=== PATIENT | male | born 1965 | race Two or more races ===

== ENCOUNTER 2025-09-13 09:39 | Emergency (ER) | payer MEDICAID, SELFPAY ==
[2025-09-13 09:52] VITALS: BP 175/81; PULSE 91; RESP 18; TEMP 37; O2SAT 98; BMI 29.9
--- NOTE | 2025-09-13 09:59 | EDNOTE_ITS ---
<Statement entered by Parisa Nelson MD - 09/13/25 16:13> As co-signing physician, I was present and available for consult prn. I concur with the plan and care as documented by the midlevel provider. ED General RME/HPI General Chief complaint: General Adult/Misc Complain Stated complaint: NAIL IN R) FOOT HEEL Time Seen by Provider: 09/13/25 09:45 Arrival date/time: 09/13/25 09:39 59-year-old male presents to the Emergency Department today for complaints of injury to his right foot patient reports he accidentally stepped on a nail last night patient currently has a nail embedded in his foot Limitations: no limitations Related Data Previous Rx's ?Medication ?Instructions ?Recorded bacitracin 500 unit/gram topical 1 applic topical TID 7 days #28.4 09/13/25 ointment grams ciprofloxacin HCl 500 mg tablet 500 mg PO BID 7 days # 14 tabs 09/13/25 ibuprofen 800 mg tablet 800 mg PO TID PRN pain #30 t abs 09/13/25 Allergies Allergy/AdvReac Type Severity Reaction Status Date / Time No Known Allergies Allergy Verified 09/13/25 09:42 Review of Systems Review of Systems Systems Reviewed: All systems reviewed, normal except as documented Constitutional Constitutional: Reports system reviewed and no additional complaints, except as documented, Denies fever(s) and Denies headache(s) Eyes Eyes: Reports system reviewed and no additional complaints, except as documented and Denies blurry vision ENT Ears, Nose, Mouth, and Throat: Reports system reviewed and no additional complaints, except as documented, Denies headache(s), Denies nasal congestion and Denies nasal discharge Cardiovascular Cardiovascular: Reports system reviewed and no additional complaints, except as documented, Denies chest pain and Denies dyspnea Respiratory Respiratory: Reports system reviewed and no additional complaints, except as documented, Denies chest congestion, Denies cough and Denies dyspnea Gastrointestinal Gastrointestinal: Reports system reviewed and no additional complaints, except as documented and Denies abdominal pain Musculoskeletal Musculoskeletal: Reports other (Puncture wound right foot) Integumentary/Breasts Skin/Breast: Reports system reviewed and no additional complaints, except as documented, Denies rash and Reports wounds (Puncture wound right foot) Neurologic Neurologic: Reports system reviewed and no additional complaints, except as documented, Reports as per HPI and Denies headache(s) Past Medical History Past Medical History CARDIAC: Negative Cardiac Disorders or Congestive Heart Failure RESPIRATORY: Negative Chronic Obstructive Pulmonary Disease (COPD) or Asthma GENITOURINARY: Negative Renal Disease ENDOCRINE: Negative Diabetes Mellitus Type 1 or Diabetes Mellitus Type 2 HEMATOLOGIC: Negative Sickle Cell Disease Social History SMOKING STATUS: Current every day smoker ED Exam General Limitations: Present no limitations General appearance: Present alert and in no apparent distress Head Head exam: Present atraumatic Eye Eye exam: Present normal appearance, PERRL and EOMI ENT ENT exam: Present normal exam, normal oropharynx and mucous membranes moist Neck Neck exam: Present normal inspection, full ROM and trachea midline Chest Chest inspection: Present normal inspection and symmetric chest wall rise Respiratory Respiratory exam: Present normal lung sounds bilaterally Cardiovascular Cardiovascular exam: Present regular rate, normal rhythm and normal heart sounds Abdominal Exam Abdominal exam: Present soft and normal bowel sounds Extremities Exam Extremities exam: Present normal inspection and full ROM Back Exam Back exam: Present normal inspection and full ROM Neurological Exam Neurological exam: Present alert, oriented X3, CN II-XII intact, normal gait and reflexes normal; Absent motor sensory deficit Psychiatric Psychiatric exam: Present normal affect and normal mood Skin Skin exam: Present warm, dry and other (Puncture wound right foot) Course Quality Measures none Orders Category Date Time Status TDap [Obtain Tdap Consent] X1 Care 09/13/25 09:59 Completed Wound Care NOW Care 09/13/25 09:59 Completed TET,DIP/PERT AC (Adult)-Tdap [Boostrix Adult (Tdap) Med 09/13/25 09:59 Discontinued Vacc] 0.5 ml IMI .ONCE ONE Vital Signs Vital signs: Vital Signs Temperature 98.6 F 09/13/25 09:52 Pulse Rate 91 09/13/25 09:52 Respiratory Rate 18 09/13/25 09:52 Blood Pressure 175/81 H 09/13/25 09:52 Pulse Oximetry (%) 98 09/13/25 09:52 Oxygen Delivery Method Room Air 09/13/25 09:52 O2 saturation 98% on room air within normal limits PROCEDURES: Foreign Body Removal Time Out Performed: yes Site: right Description of foreign body: other (nail) Sedation/Analgesia: none Technique: manual removal and removal with forceps Confirmed by:: direct visualization Complications: none Post-procedure exam: awake, alert Neurovascular: normal distal pulse Discharge Plan Plan Patient Disposition: HOME (Self Care) Discharge Disposition comment: Stable Prescriptions/Referrals Prescriptions/Med Rec: New ibuprofen 800 mg tablet 800 mg PO TID PRN (Reason: pain) Qty: 30 0RF bacitracin 500 unit/gram ointment 1 applic topical TID 7 Days Qty: 28.4 0RF ciprofloxacin HCl 500 mg tablet 500 mg PO BID 7 Days Qty: 14 0RF Problem List Clinical Impression: Foreign body in foot, right Patient/Caregiver Discharge Instructions Education Materials: ED Foreign Body Soft Tissue Removed Additional Instructions: Please follow up with your primary care doctor in the next 24-48hrs for any worsening symptoms return here immediately Print Language: Khmer Stand Alone Forms: Cynthia Award Info., Patient Portal Info Letter PA/TRUCK TECHNICIAN Supervising Physician PA/TRUCK TECHNICIAN Supervising Physician: Dr. Nelson MDM Narrative MDM hospital course (for use when minimal MDM required): 59-year-old male presents to the Emergency Department today for complaints of injury to his right foot patient reports he accidentally stepped on a nail last night patient currently has a nail embedded in his foot With forceps patient is now removed its entirety Exam of the patient's foot patient has a small puncture wound with no active bleeding Tetanus updated patient will be discharged home with pain medication and antibiotics Patient discharged home in no distress to follow-up with primary care doctor in the next 24 to 48 hours and for any worsening symptoms to return to the ER immediately Clinical Information Provided by: patient Medical Records reviewed [facility] Meds/Rx considered, not ordered None Labs/Rad/Tests considered, not ordered None Chronic Illness/Social Conditions which may negatively complicate care or outcome(s)-explain: None or not applicable EKG EKG not done Labs Labs: none Imaging Imaging interpretation: none Medication Administration(s) none Medication Administration History Discontinued Medications Diphtheria/Tetanus/Acell Pertussis (Diphth,Pertuss(Acell),Tet Vac 0.5 Ml Syr- Adult) 0.5 ml IMi .ONCE ONE Stop: 09/13/25 10:00 Last Admin: 09/13/25 10:05 Dose: 0.5 ml Documented By: Given Diagnosis Differential Diagnosis ED Complaint MDM: Laceration, abrasion, avulsion
[2025-09-13] MEDS: DIPHTH,PERTUSS(ACELL),TET VAC 0.5 ML SYR- ADULT IMi (10:05)
== END 2025-09-13 10:14 | disposition home or self-care (01) ==
LOC: SERX 10:12
PROVIDERS: Emergency Provider Nurse Practitioner Primary Care
DX: S90.851A Superficial foreign body, right foot, initial encounter (principal); W45.8XXA Other foreign body or object entering through skin, initial encounter
CPT/HCPCS: 10120; 90471; 90715; 99282